=== PATIENT | male | born 1990 | race Caucasian/White ===

== ENCOUNTER 2018-01-29 19:25 | Emergency (ER) | payer OTHER ==
[2018-01-29 19:43] VITALS: O2SAT 98
[2018-01-29 20:54] VITALS: BP 122/74; PULSE 90
--- NOTE | 2018-01-29 21:09 | ERPHSYRPT ---
- History of Present Illness Time Seen by Provider: 01/29/18 21:03 Source: patient Exam Limitations: no limitations Patient Subjective Stated Complaint: Pt arrives to ER with c/o "infected hair" on right side of chin first noticed 3 days a ago stating pulled the hair and now has white drainage from site and swelling around site. Pt also believes may have bilateral ear infection d/t "pressure and my ear drums are hurting". Triage Nursing Assessment: erythema around site of right side chin with swelling approx half dollar sized. No drainage noted at this time. States feels like throat is swollen making difficult to swallow. Does not appear to be in any distress at this time with respirations easy even regular and unlabored. Pt able to swallow and tolerate secretions. Physician History: patient noted a pimple to the right chin area. Patient popped pimple with fingers yesterday and noted increasing redness, swelling and tenderness to area. Patient's taking [id number] meds for pain with some relief. Denies any fever, chills, dizziness, difficulty swallowing or shortness of breath. Timing/Duration: yesterday Quality: painful Severity: moderate Location: face (R chin area) Possible Causes: other (infected pimple) Modifying Factors: Improves With: other (aolo-egw-tfiyxbg meds) Associated Symptoms: change in skin texture, swelling/mass/lumps, No blisters, No difficulty breathing, No nasal congestion, No petechiae Hx Tetanus, Diphtheria Vaccination/Date Given: Yes Hx Influenza Vaccination/Date Given: Yes Hx Pneumococcal Vaccination/Date Given: Yes Immunizations Up to Date: Yes - Review of Systems Constitutional: No Fever, No Chills Eyes: No Symptoms Ears, Nose, & Throat: No Symptoms Respiratory: No Symptoms, No Cough, No Dyspnea Cardiac: No Symptoms, No Chest Pain, No Edema, No Syncope Abdominal/Gastrointestinal: No Symptoms, No Abdominal Pain, No Nausea, No Vomiting, No Diarrhea Genitourinary Symptoms: No Symptoms, No Dysuria Musculoskeletal: No Symptoms, No Back Pain, No Neck Pain Skin: Cellulitis, Skin Lesions (right chin area), No Rash Neurological: No Symptoms, No Dizziness, No Focal Weakness, No Sensory Changes Psychological: No Symptoms Endocrine: No Symptoms All Other Systems: Reviewed and Negative - Past Medical History Pertinent Past Medical History: Yes Cardiac History: Other Respiratory History: Asthma Psycho-Social History: Anxiety Other Medical History: heart murmur - Past Surgical History Past Surgical History: Yes Other Surgical History: ear tubes - Social History Smoking Status: Current every day smoker How long have you smoked: 15 years Drug Use: marijuana - Nursing Vital Signs Nursing Vital Signs: Initial Vital Signs Temperature 98.6 F 01/29/18 19:31 Pulse Rate 98 H 01/29/18 19:31 Respiratory Rate 18 01/29/18 19:31 Blood Pressure 143/84 01/29/18 19:31 O2 Sat by Pulse Oximetry 98 01/29/18 19:31 Pain Scale Pain Intensity 7 - Physical Exam General Appearance: no apparent distress, alert Eye Exam: PERRL/EOMI, eyes nml inspection Ears, Nose, Throat Exam: normal ENT inspection, pharynx normal, moist mucous membranes Neck Exam: normal inspection, non-tender, supple, full range of motion Respiratory Exam: normal breath sounds, lungs clear, No respiratory distress Cardiovascular Exam: regular rate/rhythm, normal heart sounds Gastrointestinal/Abdomen Exam: soft, mass, No tenderness Back Exam: normal inspection, normal range of motion, No CVA tenderness, No vertebral tenderness Extremity Exam: normal inspection, normal range of motion Neurologic Exam: alert, oriented x 3, cooperative, normal mood/affect, sensation nml, No motor deficits Skin Exam: normal color, warm, dry, other (there is a small area of swelling/ redness/tenderness to the right chin area.) Lymphatic Exam: No adenopathy SpO2 Interpretation: normal SpO2: 98 Oxygen Delivery: Room Air - Course Nursing assessment & vital signs reviewed: Yes - Progress Will see patient in: ED Counseled pt/family regarding: diagnosis - Departure Time of Disposition: 21:08 Departure Disposition: Home Clinical Impression: Cellulitis Condition: Stable Critical Care Time: No Referrals: DOCTOR,NO FAMILY [Primary Care Provider] - Instructions: Cellulitis (Skin Infection), Adult (DC) Additional Instructions: Rx: Keflex. Take Motrin 800 mg every 8 hours and/or Tylenol 1 g every 4 hours for pain/ swelling. Use warm compress to area 2-3 times a day. Return for worse swelling, pain, redness or any problems. Prescriptions: Cephalexin Mh 500 mg [Keflex 500 mg] 500 mg PO QID 10 Days #40 capsule
[2018-01-29] MEDS ORDERED: KEFLEX 500 MG PO ONE (21:13)
[2018-01-29] MEDS ORDERED: NORCO 5/325 MG PO ONE (21:13)
[2018-01-29] MEDS ORDERED: KEFLEX 500 MG ONE (21:17)
[2018-01-29] MEDS ORDERED: NORCO 5/325 MG ONE (21:18)
== END 2018-01-29 21:29 | disposition home or self-care (01) ==
LOC: ED 19:25
DX: L03.221 Cellulitis of neck (principal); J45.909 Unspecified asthma, uncomplicated; F41.9 Anxiety disorder, unspecified
CPT/HCPCS: 99283; A9270-GY

== ENCOUNTER 2025-05-25 16:02 | Emergency (ER) | payer SELFPAY ==
[2025-05-25 16:15] VITALS: TEMP 97.5
[2025-05-25] MEDS ORDERED: PULMICORT 0.5 MG/2 ML RESPULES IH ONE (16:35)
[2025-05-25] MEDS: PULMICORT 0.5 MG/2 ML RESPULES IH ONE (16:38)
[2025-05-25] MEDS ORDERED: DELTASONE 20 MG ONE (17:04)
[2025-05-25] MEDS: DELTASONE 20 MG PO ONE (17:05)
[2025-05-25 18:03] VITALS: BP 104/66; O2SAT 98
[2025-05-25] MEDS: Advair Hfa 115/21 Common canister IH SCH (18:18)
[2025-05-25 18:26] VITALS: PULSE 92; RESP 16
--- NOTE | 2025-05-25 18:26 | ERPHSYRPT ---
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 He is been inhaling caustic agents at work. He developed a cough. His chronic cough. He does not have any fever or chills he has no infectious symptoms. Nothing makes symptoms better or worse. He is not dyspneic. Timing/Duration: day(s) (Four) Allergies/Adverse Reactions: No Known Drug Allergies Allergy (Verified 05/25/25 16:15) Home Medications: Buprenorphine HCl/Naloxone HCl [Buprenorphin-Naloxon 8-2 mg Sl] 2.5 film SL DAILY 05/25/25 [History] Hx Tetanus, Diphtheria Vaccination/Date Given: Yes Hx Influenza Vaccination/Date Given: Yes Hx Pneumococcal Vaccination/Date Given: Yes Travel Risk - International Travel Have you traveled outside of the country in past 3 weeks: No - Emerging Infectious Disease Are you exhibiting symptoms associated with any current EIDs: Yes Symptoms: Shortness of Breath - Review of Systems Constitutional: No Symptoms Eyes: No Symptoms Respiratory: Cough Cardiac: No Symptoms All Other Systems: Reviewed and Negative - Past Medical History Pertinent Past Medical History: Yes Cardiac History: Other Respiratory History: Asthma Psycho-Social History: Anxiety Other Medical History: heart murmur - Past Surgical History Past Surgical History: Yes Gastrointestinal: Hernia Repair Other Surgical History: ear tubes - Social History Smoking Status: Current every day smoker How long have you smoked: 15 years Exposure to second hand smoke: Yes Drug Use: marijuana - Social Determinants of Health Will the patient participate in the screening: Yes Do you worry about a steady place to live?: No Do you have any problems with any of the following?: No known problems In the past 12 months,have you had to go without utilities?: No Transportation Issues: No Has anyone in your support network made you feel unsafe?: No Have you or anyone in your house had to go w/o enough food: No - Nursing Vital Signs Nursing Vital Signs: Initial Vital Signs Pulse Rate 88 05/25/25 16:06 Respiratory Rate 18 05/25/25 16:06 Blood Pressure 117/83 05/25/25 16:06 O2 Sat by Pulse Oximetry 98 05/25/25 16:06 Pain Scale Pain Intensity 7 - Physical Exam General Appearance: no apparent distress Eye Exam: PERRL/EOMI Respiratory Exam: normal breath sounds, lungs clear Abdominal/Gastrointestinal Exam: soft, normal bowel sounds Neurologic Exam: alert, oriented x 3 Skin Exam: normal color, warm SpO2 Interpretation: normal SpO2: 98 - Course Nursing assessment & vital signs reviewed: Yes Ordered Tests: Active Orders 24 hr Category Date Time Status Respiratory Therapy Assessment DAILY RT 05/25/25 16:46 Active Medication Summary Generic Name Dose Route Start Last Admin Trade Name Freq PRN Reason Stop Dose Admin Fluticasone/Salmeterol 2 puff 05/25/25 19:00 05/25/25 18:18 Fluticasone/Salmeterol 115/21 60 Puff Aer.W.Adap IH 06/24/25 18:59 2 puff BIDRT ROMERO Administration Discontinued Medications Generic Name Dose Route Start Last Admin Trade Name Freq PRN Reason Stop Dose Admin Budesonide 0.5 mg 05/25/25 16:30 05/25/25 16:38 Budesonide 0.5 Mg/2 Ml Ampul.Neb. IH 05/25/25 16:31 0.5 mg ONCE ONE Administration Budesonide Confirm 05/25/25 16:35 Budesonide 0.5 Mg/2 Ml Ampul.Neb. Administered 05/25/25 16:36 Dose 0.5 mg IH .STK-MED ONE Prednisone 20 mg 05/25/25 16:35 05/25/25 17:05 Prednisone 20 Mg Tablet PO 05/25/25 16:36 20 mg STAT ONE Administration Prednisone Confirm 05/25/25 17:04 Prednisone 20 Mg Tablet Administered 05/25/25 17:05 Dose 20 mg .ROUTE .STK-MED ONE - Progress Progress: improved Air Movement: good Progress Note: Patient got a steroid inhaler and instructions. She would he was given a spacer. RT came and instructed him. He also got a nebulized inhaler. I going to go ahead and start him onPrednisone as well. 05/25/25 18:24 Blood Culture(s) Obtained: No Antibiotics given: No - Departure Departure Disposition: Home Clinical Impression: Chemical pneumonitis Condition: Stable Critical Care Time: No Referrals: DOCTOR,NO FAMILY [Primary Care Provider, UNKNOWN] - Follow up/PCP as directed Instructions: Chronic Obstructive Pulmonary Disease Prescriptions: Fluticasone/Salmeterol 115/21* [Advair Hfa 115/21 Mcg Inhaler] 2 puff IH BIDRT #1
== END 2025-05-25 18:45 | disposition home or self-care (01) ==
LOC: ED 16:02
DX: J68.0 Bronchitis and pneumonitis due to chemicals, gases, fumes and vapors (principal); Z79.891 Long term (current) use of opiate analgesic; Z79.52 Long term (current) use of systemic steroids; Z79.899 Other long term (current) drug therapy; Z72.0 Tobacco use